=== PATIENT | female | born 1995 | race Caucasian/White ===

== ENCOUNTER 2019-04-30 00:25 | Emergency (ER) | payer SELFPAY ==
--- NOTE | 2019-04-30 01:14 | ED ---
Head Injury - HPI Summary HPI Summary: This patient is a 24 year old F presenting to [facility] with a chief complaint of head pain since 23:45 on 04/29/18. Pt has bumps on head and hand. She hit head on stairs. She did not lose consciousness, and reported that the bump is not painful, but is worried that is due to alcohol. Pt has had 4 drinks from 2100- 2300. No medical problems but pt recently had a cold. Her last period was on 04/13. Pt denies vomiting. Pt reports dizziness. - History Of Current Complaint Chief Complaint: EDHeadInjury Stated Complaint: HIT MY HEAD HARD PER PT Time Seen by Provider: 04/30/19 00:38 Hx Obtained From: Patient Mechanism Of Injury: Direct Blow, Fall From A Standing Position Onset/Duration: Started Minutes Ago Onset of Pain: Post Accident Severity Initially: Mild Pain Intensity: 1 Pain Scale Used: 0-10 Numeric Location of Head Injury: Parietal Location: Discrete At: - parietal Associated Signs And Symptoms: Bruising, Other: - dizziness - Allergies/Home Medications Allergies/Adverse Reactions: Allergies Allergy/AdvReac Type Severity Reaction Status Date / Time Penicillins Allergy Rash And Verified 04/30/19 00:28 Itching pepper (genus Capsicum) Allergy Stomach Verified 04/30/19 00:28 Cramps PMH/Surg Hx/FS Hx/Imm Hx Sensory History: Denies: Hx Legally Blind, Hx Deafness Opthamlomology History: Denies: Hx Legally Blind EENT History: Denies: Hx Deafness - Surgical History Surgery Procedure, Year, and Place: adenoids removed Infectious Disease History: No Infectious Disease History: Denies: Traveled Outside the [place] in Last 30 Days - Family History Known Family History: Positive: Hypertension, Diabetes - Social History Occupation: Student Lives: Dormitory/Roommates Alcohol Use: Weekly Substance Use Type: Reports: None Smoking Status (MU): Never Smoked Tobacco Review of Systems Negative: Vomiting, Nausea Positive: Bruising Neurological: Other - dizziness Negative: Syncope All Other Systems Reviewed And Are Negative: Yes Physical Exam - Summary Physical Exam Summary: General: Well-developed, Well-nourished Intoxicated female. No acute distress. HEENT: Contusion of the right parietal 1.4 cm in diameter Eyes: Conjuctiva normal, PERRL. Oropharynx: Clear, mucous membranes moist, (-) exudates. Neck: Soft, FROM, (-) lymphadenopathy, (-) thyromegaly, (-) JVD. Cardiovascular: Normal sinus rhythm, (-) murmur. Lungs: Clear to auscultation bilaterally (-) wheezes, (-) rales, (-) rhonchi. Abdomen: Soft, non-tender, non-distended, (-) organomegaly, normal bowel sounds. Back: (-) CVA tenderness Extremities: No edema. Contusion of forearm 1.2 cm in diameter. Nml cap refill, strength, and ROM in distal extremities otherwise. Skin: Warm, dry, (-) rash. Neuro: Alert and oriented x3, move all extremities equally. No ataxia. No gait disturbance. No sensory deficit. No amnesia. Slow to respond, slurring of words , Psychiatric: Mood normal, affect normal. Triage Information Reviewed: Yes Vital Signs On Initial Exam: Initial Vitals Temp Pulse Resp BP Pulse Ox 97.7 F 78 15 121/76 99 04/30/19 00:25 04/30/19 00:25 04/30/19 00:25 04/30/19 00:25 04/30/19 00:25 Vital Signs Reviewed: Yes - Tre Coma Scale Best Eye Response: 4 - Spontaneous Best Motor Response: 6 - Obeys Commands Best Verbal Response: 5 - Oriented Coma Scale Total: 15 Procedures - Sedation Patient Received Moderate/Deep Sedation with Procedure: No Diagnostics - Vital Signs Vital Signs Temp Pulse Resp BP Pulse Ox 04/30/19 00:25 97.7 F 78 15 121/76 99 - Laboratory Lab Statement: Any lab studies that have been ordered have been reviewed, and results considered in the medical decision making process. - CT Brain CT CT Interpretation Completed By: ED Physician Summary of CT Findings: Brain CT reveals, per radiologist IMPRESSION: Negative noncontrast head CT. ED physician has reviewed this radiology report. Re-Evaluation - Re-Evaluation First Eval Re-Evaluation Time: 02:19 Comment: I have discussed results with the patient. Discussed symptoms that warrant immediate return to ED Head Injury Course/Dx Course Of Treatment: 24 year old F presents after fall, she hit head and R distal arm on a step. Pt says she has had at least 4 alcoholic drinks tonight prior to this event. She states she has a large bump on head. Pt is concerned because she thinks alcohol is blocking the pain. She denies any loss of consciousness, no vomiting or gait disturbance. Pt appears to be intoxicated on exam, large scalp hematoma noted. Pt is alert and oriented x3 but concerned about alcohol intoxication. CT head negative. patient discharged to home follow up with PCP, follow up sooner for any worsening symptoms. - Diagnoses Provider Diagnoses: Fall, Head trauma, Contusion of arm Discharge ED - Sign-Out/Discharge Documenting (check all that apply): Patient Departure - Discharge - Discharge Plan Condition: Stable Disposition: HOME Patient Education Materials: Head Injury (ED) Referrals: [facility] [Outside] - 3 Days Additional Instructions: Please follow up with your primary care physician within three days. Please return to ED for any new or worsening symptoms. - Billing Disposition and Condition Condition: STABLE Disposition: Home - Attestation Statements Document Initiated by Austin: Yes Documenting Scribe: Jessi Espinoza Provider For Whom Austin is Documenting (Include Credential): Dr. Irish Ortega MD Scribe Attestation: Jessi Rice scribed for Dr. Irish Ortega MD on 04/30/19 at 0541. Scribe Documentation Reviewed: Yes Provider Attestation: The documentation as recorded by the Jessi larry accurately reflects the service I personally performed and the decisions made by me, Dr. Irish Ortega MD Status of Scribe Document: Viewed
[2019-04-30 02:42] VITALS: BP 117/81
== END 2019-04-30 02:35 | disposition home or self-care (01) ==
LOC: ED 00:25
DX: S09.90XA Unspecified injury of head, initial encounter (principal); S50.11XA Contusion of right forearm, initial encounter; S00.03XA Contusion of scalp, initial encounter; W18.30XA Fall on same level, unspecified, initial encounter; Y92.9 Unspecified place or not applicable; R42 Dizziness and giddiness; Z88.0 Allergy status to penicillin; Z91.018 Allergy to other foods
CPT/HCPCS: 70450; 99282